=== PATIENT | female | born 1960 | race Two or more races ===

== ENCOUNTER 2022-08-21 07:35 | Inpatient (IN) | payer OTHER ==
[2022-08-20 11:51] LABS: Basophils # (auto) 0 10 ^3/uL (0-0.2); Basophils % (auto) 0.4 % (0.0-2.0); Eosinophils # (auto) 0.1 10 ^3/uL (0-0.8); Eosinophils % (auto) 1.2 % (0.0-7.0); Hematocrit 41.9 % (36.0-46.0); Hemoglobin 14.1 g/dL (12.2-16.2); Lymphocytes # (auto) 2.3 10 ^3/uL (0.4-5.4); Lymphocytes % (auto) 22.5 % (10.0-50.0); Mean Corpuscular Hemoglobin 30.6 pg (28.0-32.0); Mean Corpuscular Hgb Conc. 33.6 g/dL (32.0-36.0); Mean Corpuscular Volume 91.1 fL (80.0-100.0); Monocytes # (auto) 0.8 10 ^3/uL (0-1.3); Monocytes % (auto) 7.5 % (0.0-12.0); Neutrophils # (auto) 6.9 10 ^3/uL (1.6-8.6); Neutrophils % (auto) 68.4 % (37.0-80.0); Nucleated Red Blood Cells % 0.1 %; Red Cell Distribution Width 13.9 % (11.8-14.3); White Blood Cell 10.1 10^3/uL (4.4-10.8)
[2022-08-20 12:32] LABS: INR 0.92 (0.9-1.15); Partial Thromboplastin Time 28.2 sec (24.6-33.4)
[2022-08-20 12:56] LABS: Urine Bacteria FEW /hpf (None Seen); Urine Blood Negative /uL (Negative); Urine Hyaline Cast FEW /lpf (0 - 2); Urine Mucus FEW (None Seen); Urine Specific Gravity 1.028 (1.001-1.035); Urine WBC 8 /hpf (0 - 5)
[2022-08-20 13:07] LABS: Albumin 3.5 g/dL (3.4-5.0); BUN/Creatinine Ratio 19.1; Calcium 9.3 mg/dL (8.5-10.1)
[2022-08-20 13:09] LABS: Bilirubin, Total 0.3 mg/dL (0.2-1.0); Total Protein 7.5 g/dL (6.4-8.2)
[~2022-08-21] VITALS: Ht 170.2 cm; Wt 109.9 kg
[~2022-08-21 07:35] MED LIST: ATOR40TA52 PO; GLIM4TAB42 PO; INSLANTI SC; LOSA-69 PO; METF-372 PO
[2022-08-21] MEDS ORDERED: ceFAZolin 1GM/50ML 100 ML IV ONE (07:56)
[2022-08-21] MEDS ORDERED: LIDOCAINE W/ EPINEPHRINE 1% 20ML VIAL ONE (10:18)
[2022-08-21] MEDS ORDERED: BUPIVACAINE 0.5% P/F INJ 10 ML VIAL ONE (10:18)
[2022-08-21] MEDS ORDERED: BUPIVACAINE 0.25% INJ 50ML VIAL ONE (10:18)
[2022-08-21] MEDS ORDERED: fentaNYL CITRATE 100 MCG/2 ML VL ONE (10:29)
[2022-08-21] MEDS ORDERED: LABETALOL HCL 5 MG/ML 4ML SYRINGE IV PRN (10:30)
[2022-08-21] MEDS ORDERED: MIDAZOLAM HCL 2MG/2ML 2ml VIAL (1mg/ml) IV PRN (10:30)
[2022-08-21] MEDS ORDERED: MIDAZOLAM HCL 2MG/2ML 2ml VIAL (1mg/ml) ONE (10:30)
[2022-08-21] MEDS ORDERED: ONDANSETRON HCL 4 MG/2 ML VIAL IV PRN ×2 (10:30→12:00)
[2022-08-21] MEDS ORDERED: MEPERIDINE HCL (25 MG/ML) 1ML VIAL ONE (10:30)
[2022-08-21] MEDS ORDERED: METOCLOPRAMIDE HCL 5MG/ml INJ 2ml VIAL IV PRN (10:30)
[2022-08-21] MEDS ORDERED: MORPHINE SULFATE 4 MG/ML SYR/VIAL IV PRN (10:30)
[2022-08-21] MEDS ORDERED: ePHEDrine SULFATE 50 MG/ML AMP IV PRN (10:30)
[2022-08-21] MEDS ORDERED: PROPOFOL 10 MG/ML 20 ML IV ONE (11:15)
[2022-08-21] MEDS ORDERED: DexAMETHasone SOD PHOS 10MG/1ML VIAL INJ ONE (11:15)
[2022-08-21] MEDS ORDERED: ONDANSETRON HCL 4 MG/2 ML VIAL ONE (11:15)
[2022-08-21] MEDS ORDERED: SUGAMMADEX 200mg/2ml Vial (100MG/ML) IV ONE (11:42)
[2022-08-21] MEDS ORDERED: D5W/SOD CHL 0.45%/KCL 20MEQ 1,000 ML IV SCH (12:00)
[2022-08-21] MEDS ORDERED: HYDROmorphone HCL 2 MG/ML VL/or syr IV PRN (12:00)
[2022-08-21] MEDS: HYDROmorphone HCL 2 MG/ML VL/or syr IV PRN ×2 (12:42→12:53)
[2022-08-21] MEDS ORDERED: DEXTROSE (50%) 50ML SYRG IV PRN (12:45)
[2022-08-21] MEDS ORDERED: ENALAPRILAT 1.25 MG/ML-1ML VIAL IV PRN (12:45)
[2022-08-21] MEDS: D5W/SOD CHL 0.45%/KCL 20MEQ 1,000 ML IV SCH ×2 (12:45→23:15)
[2022-08-21] MEDS ORDERED: ceFAZolin 1GM/50ML 50 ML IV SCH (14:00)
[2022-08-21 14:50] VITALS: BP 126/75
[2022-08-21 17:00] VITALS: BP 126/75
[2022-08-21] MEDS: HYDROcodone-ACET 5/325MG TAB PO PRN ×2 (17:03→23:12)
[2022-08-21] MEDS: ACCU-CHEK COMFORT CURVE STRIP VI SCH (18:04)
[2022-08-21] MEDS: InsuLIN REG 1unit/0.01ml Soln (100units/ml) SC SCH (18:11)
[2022-08-21] MEDS: ceFAZolin 1GM/50ML 50 ML IV SCH (19:06)
[2022-08-21 20:00] VITALS: BP 110/62
[2022-08-21 22:00] VITALS: BP 110/62
[2022-08-22] MEDS: ACCU-CHEK COMFORT CURVE STRIP VI SCH ×3 (00:02→12:02)
[2022-08-22] MEDS: InsuLIN REG 1unit/0.01ml Soln (100units/ml) SC SCH ×3 (00:14→12:25)
[2022-08-22] MEDS: ceFAZolin 1GM/50ML 50 ML IV SCH (02:50)
[2022-08-22 05:00] VITALS: BP 119/76
[2022-08-22 05:31] LABS: Basophils # (auto) 0 10 ^3/uL (0-0.2); Basophils % (auto) 0.1 % (0.0-2.0); Eosinophils # (auto) 0 10 ^3/uL (0-0.8); Hematocrit 36.3 % (36.0-46.0); Hemoglobin 12.5 g/dL (12.2-16.2); Mean Corpuscular Hemoglobin 31.4 pg (28.0-32.0); Mean Corpuscular Hgb Conc. 34.4 g/dL (32.0-36.0); Mean Corpuscular Volume 91.3 fL (80.0-100.0); Monocytes # (auto) 0.7 10 ^3/uL (0-1.3); Monocytes % (auto) 6.6 % (0.0-12.0); Neutrophils # (auto) 8.3 10 ^3/uL (1.6-8.6); Neutrophils % (auto) 83.3 % (37.0-80.0); Red Blood Cells 3.98 10^6/uL (4.0-5.20); Red Cell Distribution Width 13.4 % (11.8-14.3); White Blood Cell 9.9 10^3/uL (4.4-10.8)
[2022-08-22 05:46] LABS: Potassium 4.2 mmol/L (3.5-5.1)
[2022-08-22 06:01] LABS: Albumin 3.1 g/dL (3.4-5.0); BUN/Creatinine Ratio 13.8; Bilirubin, Total 0.3 mg/dL (0.2-1.0); Calcium 8.8 mg/dL (8.5-10.1); Total Protein 6.5 g/dL (6.4-8.2)
[2022-08-22] MEDS: HYDROcodone-ACET 5/325MG TAB PO PRN (06:02)
[2022-08-22 08:00] VITALS: BP 110/62
[2022-08-22 09:00] VITALS: BP 116/67
[2022-08-22] MEDS ORDERED: PANTOPRAZOLE 40 MG/10 ML VIAL INJ IV SCH (10:00)
[2022-08-22] MEDS ORDERED: CEPH-510 PO (10:08)
[2022-08-22] MEDS ORDERED: HYDR1TAB97 PO (10:08)
[2022-08-22] MEDS ORDERED: DOCU-94 PO (10:08)
[2022-08-22] MEDS ORDERED: D5W/SOD CHL 0.45%/KCL 20MEQ 1,000 ML IV SCH (10:15)
[2022-08-22 13:00] VITALS: BP 124/77
== END 2022-08-22 13:23 | disposition home or self-care (01) | DRG 419 ==
LOC: SUR 07:35 → OVERFLOW 12:41 → CENTRAL 14:26
PROVIDERS: ADMIT Internal Medicine; ATTEND Internal Medicine
PROC: 0FT44ZZ Resection of Gallbladder, Percutaneous Endoscopic Approach (ICD-10-PCS; principal; 2022-08-21 10:46)
DX: K80.10 Calculus of gallbladder with chronic cholecystitis without obstruction (principal); E11.9 Type 2 diabetes mellitus without complications; E78.5 Hyperlipidemia, unspecified; I10 Essential (primary) hypertension; Z68.37 Body mass index [BMI] 37.0-37.9, adult; E66.01 Morbid (severe) obesity due to excess calories; K66.0 Peritoneal adhesions (postprocedural) (postinfection); Z20.822 Contact with and (suspected) exposure to COVID-19
CPT/HCPCS: 36415; 80053; 81001; 82962; 83036; 85025; 85610; 85730; 86850; 86900; 86901; C9113; G0378; J0690; J1100; J1815; J2250; J2405; J2704; J3490